=== PATIENT | female | born 1995 | race Caucasian/White ===

== ENCOUNTER 2025-02-22 08:50 | Observation (INO) ==
[2025-02-22] MEDS ORDERED: KETAMINE HCL ONE (10:40)
[2025-02-22] MEDS ORDERED: PRECEDEX INJ VIAL ONE (10:40)
[2025-02-22] MEDS ORDERED: SUPRANE IN ONE (10:40)
[2025-02-22] MEDS ORDERED: TYLENOL 325 MG TAB PO PRN (11:01)
[2025-02-22] MEDS ORDERED: CONSULT PHARMACY - POTASSIUM & MAGNESIUM XX SCH (11:01)
[2025-02-22] MEDS ORDERED: ULTRAM PO PRN (11:01)
[2025-02-22] MEDS: PROTONIX INJ 40 MG VIAL IVP SCH (11:26)
[2025-02-22] MEDS: LEVAQUIN PREMIX IV 500 MG 500 MG/100 ML BAG IV SCH (11:27)
[2025-02-22] MEDS: D5 1/2 NS 1,000 ML 1,000 ML IV SCH (11:27)
[2025-02-22 11:36] LABS: MEAN PLATELET VOLUME 9.4 fL (7.4-11.0); RED CELL DISTRIBUTION WIDTH 13.4 % (11.6-16.5)
[2025-02-22 11:51] LABS: CREATININE 1.00 mg/dL (0.55-1.02); eGFR NON BLACK RACES > 60 (>60)
[2025-02-22 11:54] LABS: SERUM PREGNANCY TEST, QUAL NEGATIVE <10 mIU/mL
[2025-02-22] MEDS: NORCO 5/325 MG TAB PO PRN (15:45)
[2025-02-22] MEDS: ZOFRAN INJ 4 MG VIAL IVP PRN (15:45)
[2025-02-23] MEDS: HIBICLENS WASH EXT ONE (04:08)
[2025-02-23 06:01] LABS: MEAN PLATELET VOLUME 9.3 fL (7.4-11.0); RED CELL DISTRIBUTION WIDTH 13.4 % (11.6-16.5)
[2025-02-23 06:18] LABS: CREATININE 0.96 mg/dL (0.55-1.02); eGFR NON BLACK RACES > 60 (>60)
[2025-02-23] MEDS: ANCEF VIAL 1 GRAM ONE (07:26)
[2025-02-23] MEDS: NS 100 ML IV 100 ML ONE (07:27)
[2025-02-23] MEDS: LR 1,000 ML IV 1,000 ML IV ONE (07:27)
[2025-02-23] MEDS: REGLAN INJ 10 MG VIAL ONE (07:28)
[2025-02-23] MEDS: ZEMURON 100 MG VIAL ONE (07:28)
[2025-02-23] MEDS: ZOFRAN INJ 4 MG VIAL ONE (07:28)
[2025-02-23] MEDS: BRIDION ONE (07:28)
[2025-02-23] MEDS: DIPRIVAN VIAL 20 ML ONE (07:28)
[2025-02-23] MEDS: FENTANYL VIAL INJ 100 mcg ONE (07:29)
[2025-02-23] MEDS: PEPCID 20 MG VIAL ONE (07:34)
[2025-02-23] MEDS: MARCAINE/EPINEPHRINE ONE (07:34)
[2025-02-23] MEDS: VERSED ONE (07:37)
[2025-02-23] MEDS: BACTROBAN TOPICAL OINT ONE (07:50)
[2025-02-23] MEDS: OFIRMEV IV 1000 MG VIAL 1,000 MG/100 ML VIAL IV ONE (08:06)
[2025-02-23] MEDS: TORADOL 30 MG VIAL ONE (08:08)
[2025-02-23] MEDS ORDERED: BENADRYL INJ 50 MG VIAL IVP PRN (08:22)
[2025-02-23] MEDS ORDERED: REGLAN INJ 10 MG VIAL IVP PRN (08:22)
[2025-02-23] MEDS ORDERED: BARHEMSYS INJ IVP PRN (08:22)
[2025-02-23] MEDS ORDERED: ZOFRAN INJ 4 MG VIAL IVP PRN (08:22)
[2025-02-23] MEDS ORDERED: DILAUDID INJ ONE (09:07)
[2025-02-23] MEDS: DILAUDID INJ IVP PRN (09:09)
[2025-02-23] MEDS: MORPHINE SULFATE INJ 2 MG INJ IVP PRN (13:20)
[2025-02-24 05:51] LABS: MEAN PLATELET VOLUME 9.5 fL (7.4-11.0); RED CELL DISTRIBUTION WIDTH 13.5 % (11.6-16.5)
[2025-02-24 06:09] LABS: COR CA(FOR HYPOALB) 9.0 mg/dL (8.5-10.1); CREATININE 0.97 mg/dL (0.55-1.02); eGFR NON BLACK RACES > 60 (>60)
[2025-02-24] MEDS: COLACE CAP 100 MG PO SCH (09:36)
[2025-02-24 09:53] VITALS: O2SAT 98
[2025-02-24 13:24] VITALS: BP 120/66; PULSE 63; RESP 19; TEMP 98.9
== END 2025-02-24 13:20 | disposition home or self-care (01) ==
LOC: MED/SURG
PROVIDERS: ADMIT Surgery; ATTEND Surgery
DX: K82.8 Other specified diseases of gallbladder; R10.11 Right upper quadrant pain; R74.01 Elevation of levels of liver transaminase levels; N83.291 Other ovarian cyst, right side; K81.2 Acute cholecystitis with chronic cholecystitis; K92.2 Gastrointestinal hemorrhage, unspecified; K92.1 Melena; E83.51 Hypocalcemia; R11.2 Nausea with vomiting, unspecified